=== PATIENT | female | born 1990 | race Caucasian/White ===

== ENCOUNTER 2016-08-24 14:27 | Emergency (ER) | payer BC, OTHER ==
[2016-08-24 14:58] VITALS: BP 126/81
--- NOTE | 2016-08-24 15:39 | UC ---
Throat Pain/Nasal Ti HPI - HPI Summary HPI Summary: The patient comes in today for: 1. Cough, body aches, freezing, nasal congestion, sore throat. Onset: two days. Palliative/provocative: Nothing makes symptoms better or worse. Quality: Ache Region: General body aches. Severity: Cough pain: 5/10 Time: Associated symptoms: Cough production: yellow material. Dyspnea: only with coughing. Wheezing: None. Inhalers: "Once when I was little." Rhinitis: Yellow Upper tooth pain: None. Sinus pressure: Present. Temperature: no higher than 99.5 Flu vaccine: did not get. chest pain: Only with coughing in the upper airway. * - History of Current Complaint Chief Complaint: UCRespiratory Stated Complaint: CHEST CONGESTION Time Seen by Provider: 08/24/16 15:30 Hx Obtained From: Patient, Family/Electronic Health Records Specialist Hx Last Menstrual Period: Currently menstruating ?: No - Allergies/Home Medications Allergies/Adverse Reactions: Allergies Allergy/AdvReac Type Severity Reaction Status Date / Time Sulfamethoxazole Allergy Intermediate Rash Unverified 12/02/13 13:49 w/Trimethoprim [From Bactrim] Estrogens Allergy Unknown Verified 08/24/16 14:58 Reaction Details Progesterone Allergy Unknown Verified 08/24/16 14:58 Reaction Details Sulfa Antibiotics AdvReac Intermediate Rash Unverified 12/02/13 13:49 Home Medications: Home Medications Escitalopram (NF) [Lexapro (NF)] 1 tab PO DAILY 08/24/16 [History Confirmed ] PMH/Surg Hx/FS Hx/Imm Hx Previously Healthy: No Endocrine History Of: Denies: Diabetes, Thyroid Disease, Hyperthyroidism, Hypothyroidism, Dyslipidemia Cardiovascular History Of: 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 Denies: Hypertension, Pacemaker/ICD, Myocardial Infarction, Congestive Heart Failure, Atrial Fibrillation, Deep Vein Thrombosis, Bleeding Disorders Respiratory History Of: Denies: COPD, Asthma, Bronchitis, Pneumonia, Pulmonary Embolism GI/ History Of: Denies: Gastroesophageal Reflux, Ulcer, Gastrointestinal Bleed, Gall Bladder Disease, Kidney Stones, Diverticulitis, Renal Disease, Urosepsis Neurological History Of: Denies: TIA, CVA, Dementia, Seizures, Migraine Psychological History Of: Reports: Anxiety, Depression Denies: Bipolar Disorder, Schizophrenia, Post Traumatic Stress Disorder Cancer History Of: Denies: Lung Cancer, Colorectal Cancer, Breast Cancer, Prostate Cancer, Cervical Cancer Other History Of: Negative For: HIV, Hepatitis B, Hepatitis C, Anticoagulant Therapy - Surgical History Surgical History: Yes Surgery Procedure, Year, and Place: endoscopy - Family History Known Family History: Negative: Cardiac Disease, Hypertension - Social History Occupation: Employed Full-time Alcohol Use: Rare Substance Use Type: None Smoking Status (MU): Never Smoked Tobacco Review of Systems Constitutional: Negative Skin: Negative Eyes: Negative ENT: Sore Throat, Nasal Discharge Respiratory: Cough Cardiovascular: Chest Pain Gastrointestinal: Negative Genitourinary: Negative Musculoskeletal: Arthralgia, Myalgia All Other Systems Reviewed And Are Negative: Yes Physical Exam Triage Information Reviewed: Yes Appearance: Well-Appearing, No Pain Distress, Well-Nourished Vital Signs: Initial Vital Signs Temp 98.5 F 08/24/16 14:54 Pulse 88 08/24/16 14:54 Resp 18 08/24/16 14:54 BP 126/81 08/24/16 14:54 Pulse Ox 100 08/24/16 14:54 Vital Signs Reviewed: Yes Eyes: Negative: Conjunctiva Clear, Discharge ENT: Positive: Hearing grossly normal, Nasal congestion, Nasal drainage. Negative: Pharyngeal erythema, TM bulging, TM dull, TM red, Tonsillar swelling, Tonsillar exudate Dental: Negative: Gross Decay/Caries @, Dental Fracture @ Neck: Positive: Supple, Nontender, No Lymphadenopathy. Negative: Nuchal Rigidity Respiratory: Positive: No respiratory distress, No accessory muscle use. Negative: Chest non-tender, Lungs clear, Crackles, Wheezing Cardiovascular: Positive: RRR, No Murmur Abdomen Description: Positive: Nontender, No Organomegaly, Soft. Negative: Distended, Guarding Musculoskeletal: Positive: Strength Intact, ROM Intact Neurological: Positive: Alert, Muscle Tone Normal Psychological: Positive: Normal Response To Family, Age Appropriate Behavior, Consolable Skin: Negative: rashes, breakdown Diagnostics - Laboratory Diagnostic Studies Completed/Ordered: Rapid flu: (+) A Throat Pain/Nasal Course/Dx - Differential Dx/Diagnosis Differential Diagnosis/HQI/PQRI: Influenza, Laryngitis, Pharyngitis, Tonsillitis Provider Diagnoses: Sinusitis. Bronchitis Discharge - Discharge Plan Condition: Stable Disposition: HOME Patient Education Materials: Influenza (ED), Acute Bronchitis (ED), Sinusitis ( ED) Referrals: Aleksandra Bravo NP [Primary Care Provider] - 1 Week (Please see your primary care provider in a week to see how well you are doing. If you get worse, please be seen sooner in the ER or through us.)
== END 2016-08-24 16:18 | disposition home or self-care (01) ==
LOC: UCEAST 14:27
DX: J32.9 Chronic sinusitis, unspecified (principal); J40 Bronchitis, not specified as acute or chronic; Z88.2 Allergy status to sulfonamides; Z88.8 Allergy status to other drugs, medicaments and biological substances
CPT/HCPCS: 87502; 99212; G0463